=== PATIENT | female | born 1950 | race Caucasian/White ===

== ENCOUNTER 2024-10-12 12:07 | Outpatient (OUT) | payer MEDICARE, OTHER, SELFPAY ==
--- OUTSIDE RECORDS SUMMARY | 2024-09-25 08:48 | XMS_ITS ---
Author Organization [facility] in [place] Address [address] [place] [address] Care Team Providers Care State Superintendent Of Schools Name Role Phone Skyler Cameron DO Primary Care Provider Unavailab radha WernerPamelaBalwinder Unavailable [phone] REASON FOR VISIT HISTORY CARD CLERK-Referral Appointment Encounters Encounter Location Date Provider Diagnosis Pulmonary Medicine [facility] [address] [place] [address] 09/25/2024 Balwinder Nesbitt Plan Of Treatment Next Appt Details Provider Name:Balwinder Nesbitt, 10/24/2024 10:30:00 AM, [address] [place], [address], Progress Notes * Angela TONG ADOB:[birth year] (74 yo F)Acc No.[id number]:09/25/2024 Patient: Angela SCOTT :1950 A ge:74 Y S ex:Female Address:[address], [place] [address] * true * Date: Generated for Printi ng/Faxing/eTransmitting on: 0 10/12/2024 12:14 PM EDT
--- OUTSIDE RECORDS SUMMARY | 2024-09-27 13:05 | XMS_ITS | Encounter Summary ---
Author Organization [facility] Address [address] [place] [address] Phone Care Team Providers Care Harness And Bag Inspector Name Role Phone Skyler Cameron DO Primary Care Provider [phone] Alisha Murillo MD Unavailable Reason for Referral * Imaging (Routine) - Pending Review Specialty Diagnoses / Procedures Referred By Contac t Referred To Contact Cardiology Diagnoses Presence of automatic cardioverter/defibrillator (AICD) Ischemic cardiomyopathy Procedures Cardiac Device Check - Remote Alisha Murillo MD [address] [address] Phone: tel: fax: Referral ID Status Reason Start Date Expiration Date Visits Requested Visits Authorized [id number] Pending Review Perform Procedure 11/03/2023 11/02/2024 1 1 Reason for Visit * Imaging (Routine) - Pending Review Specialty Diagnoses / Procedures Referred By Contac t Referred To Contact Cardiology Diagnoses Presence of automatic cardioverter/defibrillator (AICD) Ischemic cardiomyopathy Procedures Cardiac Device Check - Remote Alisha Murillo MD [address] [facility], [address] [address] Phone: tel: fax: Referral ID Status Reason Start Date Expiration Date Visits Requested Visits Authorized [id number] Pending Review Perform Procedure 11/03/2023 11/02/2024 1 1 Encounter Details Date Type Department Care Team (Latest Contact Info) Description 09/27/2024 1:05 PM EDT - 09/27/2024 11:59 PM EDT Hospital Encounter [place] [address] [place] [address] Presence of automatic cardioverter/defibrill ator (AICD); Ischemic cardiomyopathy Discharge Disposition: Home Social History Tobacco Use Types Packs/Day Years Used Date Smoking Tobacco: Never Smokeless Tobacco: Never Alcohol Use Standard Drinks/Week Comments Not Currently 0 (1 standard drink = 0.6 oz pur e alcohol) Comments Unknown Sex and Gender Information Value Date Recorded Sex Assigned at Not on file Legal Sex Female 7:59 AM EST Gender Identity Not on file Sexual Orientation Not on file documented as of this encounter Medications at Time of Discharge aspirin 81 mg EC tablet Take 1 tablet (81 mg) by mouth once daily. atorvastatin (Lipitor) 20 mg tabletIndications: Dyslipidemia Take 1 tablet (20 mg) by mouth once daily at bedtime. 90 tablet 3 11/03/2023 carvedilol (Coreg) 6.25 mg tabletIndications: Ischemic cardiomyopathy,She aftab hypertension Take 1 tablet (6.25 mg) by mouth 2 times daily (morning and late afternoon). 180 tablet 3 06/28/2024 6 coenzyme Q-10 200 mg capsule Take 1 capsule (200 mg) by mouth once daily. hydroCHLOROthiazid e (HYDRODiuril) 25 mg tabletIndications: Primary hypertension Take 1 tablet (25 mg) by mouth once daily. 90 tablet 3 12/13/2023 5 nitroglycerin (Nitrostat) 0.4 mg SL tabletIndications: Atherosclerosis of [place] coronary artery of [place] heart without angina pectoris,Past myocardial infarction Place 1 tablet (0.4 mg) under the tongue every 5 minutes if needed for chest pain. 25 tablet 3 12/23/2023 valsartan (Diovan) 160 mg tabletIndications: Primary hypertension Take 1 tablet (160 mg) by mouth once daily. 90 tablet 3 03/27/2024 5 documented as of this encounter Plan of Treatment Upcoming Encounters Date Type Department Care Team (Late st Contact Info) Description 10/16/2024 9:10 AM EDT Office Visit [facility] [address] [place] [address] José Mon DO [address], [address] [place] [address] 10/26/2024 10:20 AM EDT Appointment [facility] [address] [place] [address] 10/26/2024 11:00 AM EDT Office Visit [facility] [address] [facility] [address] [place] [address] Alisha Murillo MD [address] [facility] [address], [address] [place] [address] documented as of this encounter Procedures Procedure Name Priority Date/Time Associated Diagnosis Comments CARDIAC DEVICE CHECK - REMOTE Routine 09/27/2024 1:35 PM EDT Presence of automatic cardioverter/defibrillato r (AICD) Ischemic cardiomyopathy documented in this encounter Results * CARDIAC DEVICE CHECK - NON BILL - ICD (09/27/2024 1:35 PM EDT) Anatomical Region Laterality Modality Monitor/Device 09/27/2024 4:42 AM EDT Alisha Murillo MD CV IMPLANTABLE CARDIAC DEVICE WA OCEDURES Final Result documented in this encounter Visit Diagnoses Diagnosis Presence of automatic cardioverter/defibrillator (AICD) Automatic implantable cardiac defibrillator in situ Ischemic cardiomyopathy Other specified forms of chronic ischemic heart disease documented in this encounter Additional Health Concerns Assessment Noted Time A fall risk assessment has been complete d for the patient 10/19/2023 10:08 AM EDT documented as of this encounter Care Teams Harness And Bag Inspector Relationship Specialty Start Date End Date Skyler Cameron DO [address] [place] [address] PCP - General 08/29/18 Alisha Murillo MD [address] [facility], [facility] [address] [place] [address] Track Helper Electrophysiology 04/21/23 documented as of this encounter
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
--- OUTSIDE RECORDS SUMMARY | 2024-10-12 12:14 | XMS_ITS | Encounter Summary ---
Author Organization [facility] Address [address] [place] [address] Phone Care Team Providers Care Contract Mail Carrier Name Role Phone Skyler Cameron DO Primary Care Provider [phone] Alisha Murillo MD Unavailable Encounter Details Date Type Department Care Team (Late st Contact Info) Description 08/14/2020 Orders Only [facility] [address] [place] [address] Conversion, Onbase Social History Tobacco Use Types Packs/Day Years Used Date Smoking Tobacco: Never Assessed Comments Unknown Sex and Gender Information Value Date Recorded Sex Assigned at Not on file Legal Sex Female 7:59 AM EST Gender Identity Not on file Sexual Orientation Not on file documented as of this encounter Plan of Treatment Upcoming Encounters Date Type Department Care Team (Late st Contact Info) Description 10/16/2024 9:10 AM EDT Office Visit [facility] [address] [place] [address] José Mon DO [address] [place] [address] 10/26/2024 10:20 AM EDT Appointment [facility] [address] [place] [address] 10/26/2024 11:00 AM EDT Office Visit [facility] [address] [address] Alisha Murillo MD [address] [facility], [facility] [address] [place], [place] [id number] Scheduled Orders Name Type Priority Associated Diagnoses Orde r Schedule OUTSIDE LAB SCAN Lab Ordered: 08/14/2020 documented as of this encounter Visit Diagnoses Not on filedocumented in this encounter Care Teams Contract Mail Carrier Relationship Specialty Start Date End Date Skyler Cameron DO [address] [place] [address] PCP - General 08/29/18 Alisha Murillo MD [address] [facility], [facility] [address] [place] [address] Telephone Clerks Supervisor Electrophysiology 04/21/23 documented as of this encounter
--- OUTSIDE RECORDS SUMMARY | 2024-10-12 12:14 | XMS_ITS | Clinical Summary ---
Author Organization [facility] Address [address] [place] [address] Care Team Providers Care Non Profit Job Titles Name Role Phone Skyler Cameron Primary Care Provider [phone] Allergies Active Allergy Reactions Criticality Noted Date Comments Adhesive Tape-Silicones 10/04/2018 Lisinopril Other 08/11/2007 Methylprednisolone Other Low 02/19/2008 Medications Medication Sig Dispensed Refills Start Date End Date Status aspirin 325 mg tablet Take by mouth. 08/11/2007 Active atorvastatin (Lipitor) 40 mg tablet Take 40 mg by mouth in the morning. Active carvedilol (Coreg) 12.5 mg tablet Take 12.5 mg by mouth in the morning and at bedtime. 09/28/2021 Active cephalexin (Keflex) 500 mg capsule TAKE 1 CAPSULE BY MOUTH TWICE DAILY FOR 10 DAYS 02/24/2022 Active clopidogrel (Plavix) 75 mg tablet Take by mouth. 06/13/2006 Active doxycycline (Vibra-Tabs) 100 mg tablet Take 100 mg by mouth in the morning and at bedtime. 11/24/2021 Active estradiol (Estrace) 0.01 % (0.1 mg/gram) vaginal cream Insert 1 g into the vagina every 7 (seven) days. 10/04/2018 Active FLUoxetine (PROzac) 20 mg capsule Take by mouth in the morning. 04/16/2022 Active hydroCHLOROthiazide (HYDRODiuril) 25 mg tablet TAKE 1/2 (ONE-HALF) OF A TABLET TWICE DAILY 04/29/2022 Active ibuprofen 400 mg tablet TAKE 1 TABLET BY MOUTH THREE TIMES DAILY FOR PAIN 11/24/2021 Active irbesartan (Avapro) 300 mg tablet Take 300 mg by mouth at bedtime. 03/31/2022 Active irbesartan-hydrochlorot hiazide (Avalide) 300-12.5 mg tablet Take 1 tablet by mouth in the morning. Active metoprolol tartrate (Lopressor) 25 mg tablet Take 25 mg by mouth in the morning. 08/11/2007 Active nitrofurantoin, macrocrystal-monohydrat e, (Macrobid) 100 mg capsule TAKE 1 CAPSULE BY MOUTH TWICE DAILY WITH FOOD FOR 7 DAYS 02/22/2022 Active nitroglycerin (Nitrostat) 0.4 mg SL tablet DISSOLVE 1 TABLET UNDER THE TONGUE NEEDED FOR CHEST PAIN- MAY REPEAT EVERY 5 MINUTES IF NEEDED ( MAX 3 DOSES.- IF NO RELIEF CALL 911) 04/26/2022 Active ondansetron ODT (Zofran-ODT) 4 mg disintegrating tablet DISSOLVE 1 (ONE) TABLET in mouth every EIGHT hours NEEDED FOR NAUSEA AND VOMITING 02/24/2022 Active predniSONE (Deltasone) 20 mg tablet TAKE 3 TABLETS BY MOUTH FOR 3 DAYS, then TAKE 2 TABLETS BY MOUTH FOR 3 DAYS then TAKE 1 TABLET BY MOUTH FOR 3 DAYS then TAKE ONE-HALF TABLET FOR 4 DAYS WITH FOOD 10/08/2021 Active rosuvastatin (Crestor) 10 mg tablet Take by mouth. 06/13/2006 Active Active Problems Problem Noted Date Diagnosed Date Cervical polyp 10/04/2018 Prolapsed uterus 10/04/2018 Brachial neuritis or radiculitis 02/19/2008 Trigger finger, acquired 06/13/2006 Immunizations Name Administration Dates Next Due Influenza, High Dose Seasona l, Preservative Free 05/09/2020 Influenza, High-dose Seasona l, Quadrivalent, Preservative Free 02/13/2020 Influenza, seasonal, injectable 05/03/2013 Pneumococcal Polysaccharide PPV23 05/09/2012 Unspecified Sars-Cov-2 Vaccination 04/09/2021,,07/05/2020 Social History Tobacco Use Types Packs/Day Years Used Date Smoking Tobacco: Never Assessed [place] Safety & Environment Answer Date Rec orded Fear of Current or Ex-Partner Not on file Emotionally Abused Not on file 06/30/2023 Physically Abused Not on file 06/30/2023 Sexually Abused Not on file 06/30/2023 Physically or Sexually Abused Not on file Sex and Gender Information Value Date Recorded Sex Assigned at Not on file Gender Identity Not on file Sexual Orientation Not on file Last Filed Vital Signs Vital Sign Reading Time Taken Comments Blood Pressure - - Pulse - - Temperature - - Respiratory Rate 16 07/27/2022 1:03 PM EDT Oxygen Saturation - - Inhaled Oxygen Concentration - - Weight 58.5 kg (129 lb) 07/27/2022 1:03 PM EDT Height 154.9 cm (5' 1 ) 07/27/2022 1:03 PM EDT Body Mass Index 24.37 07/27/2022 1:03 PM EDT Plan of Treatment Health Maintenance Due Date Last Done Comments CT Colonography 1950 Colonoscopy 1950 Colorectal Cancer Screening 1950 FIT-DNA 1950 FIT 1950 FOBT 1950 Medicare Annual Wellness (AWV) 1950 Sigmoidoscopy 1950 Depression Screening 1962 Adult Tetanus 1972 Mammogram 1990 Zoster Vaccines (1 of 2) 2000 Fall Risk Screening 07/15/2015 Pneumococcal Vaccine: 65+ Years (2 of 2 - PCV) 07/15/2015 05/09/2012 COVID-19 Vaccine (2023-2 5 season) 2024 04/09/2021, 08/02/2020, 07/05/2020 Influenza Vaccine (Season Ended) 2025 05/09/2020, 02/13/2020, 05/03/2013 HIB Vaccines Aged Out No longer eligi ble based on patient's age to complete this topic HPV Vaccines Aged Out No longer eligi ble based on patient's age to complete this topic IPV Vaccines Aged Out No longer eligi ble based on patient's age to complete this topic Meningococcal B Vaccine Aged Out No l onger eligible based on patient's age to complete this topic Meningococcal Vaccine Aged Out No raman maranda eligible based on patient's age to complete this topic Rotavirus Vaccines Aged Out No longer eligible based on patient's age to complete this topic Care Teams Non Profit Job Titles Relationship Specialty Start Date End Date Skyler Cameron DO [address] [place] [address] PCP - General 05/11/22
--- OUTSIDE RECORDS SUMMARY | 2024-10-12 12:14 | XMS_ITS | Clinical Summary ---
Author Organization [facility] Address [address] [place] [address] Phone Care Team Providers Care Wedding Planner Name Role Phone Skyler Cameron DO Primary Care Provider [phone] Alisha Murillo MD Unavailable Allergies Active Allergy Reactions Criticality Noted Date Comments Peter Inhibitors Headache,Unknown,Other 8 Adhesive Tape-Silicones Unknown 10/04/2018 Methylprednisolone Unknown,Other Low 02/19/2008 Nitrofurantoin Nausea/vomiting,Nausea Only 02/06 Medications aspirin 81 mg EC tablet Take 1 tablet (81 mg) by mouth once daily. Active coenzyme Q-10 200 mg capsule Take 1 capsule (200 mg) by mouth once daily. Active atorvastatin (Lipitor) 20 mg tabletIndications :Dyslipidemia Take 1 tablet (20 mg) by mouth once daily at bedtime. 90 tablet 3 4 Active hydroCHLOROthiazi de (HYDRODiuril) 25 mg tabletIndications :Primary hypertension Take 1 tablet (25 mg) by mouth once daily. 90 tablet 3 4 12/13/19 25 Active nitroglycerin (Nitrostat) 0.4 mg SL tabletIndications :Atherosclerosis of [place] de[place]-ni' coronary artery of [place] de[place]' heart without angina pectoris,Past myocardial infarction Place 1 tablet (0.4 mg) under the tongue every 5 minutes if needed for chest pain. 25 tablet 3 4 Active valsartan (Diovan) 160 mg tabletIndications :Primary hypertension Take 1 tablet (160 mg) by mouth once daily. 90 tablet 3 4 03/27/20 25 Active carvedilol (Coreg) 6.25 mg tabletIndications :Ischemic cardiomyopathy,Pr imary hypertension Take 1 tablet (6.25 mg) by mouth 2 times daily (morning and late afternoon). 180 tablet 3 5 06/28/19 26 Active Active Problems Problem Noted Date Diagnosed Date Body mass index (BMI) of 24.0 to 24.9 in adult 1 06/21/2023 Encounter to discuss test results 04/20/2024 Venous insufficiency 04/20/2024 Orthostatic dizziness 04/20/2024 Chronotropic incompetence with sinus node dysfun ction 04/22/2023 Never smoked cigarettes 04/22/2023 Encounter for medication review and counseling 1 06/23/2022 Encounter to discuss treatment options Atherosclerosis of [place]' co ronary artery of [place] de[place]-ni' heart without angina pectoris 04/21/2023 Cardiac arrest 04/21/2023 Dizziness 04/21/2023 Dyslipidemia 04/21/2023 History of PTCA 04/21/2023 Primary hypertension 04/21/2023 ICD (implantable cardioverter-defibrillator), dre liu, in situ 04/21/2023 Ischemic cardiomyopathy 04/21/2023 Mechanical complication of i mplantable cardioverter-defibrillator (ICD) 04/21/2023 Past myocardial infarction 04/21/2023 Ventricular tachycardia (paroxysmal) 04/21/2023 Cervical polyp 10/04/2018 Prolapsed uterus 10/04/2018 Brachial neuritis or radiculitis 02/19/2008 Trigger finger, acquired 06/13/2006 Resolved Problems Problem Noted Date Diagnosed Date Resolved Date BMI 25.0-25.9,adult 04/22/2023 04/20/20 24 Encounters Date Type Department Care Team Description 09/27/2024 1:05 PM EDT - 09/27/2024 11:59 PM EDT Hospital Encounter [address] [address] Presence of automatic cardioverter/defibrilla tor (AICD); Ischemic cardiomyopathy Discharge Disposition: Home 08/28/2024 10:35 AM EDT - 08/28/2024 11:59 PM EDT Hospital Encounter [facility] [address] [facility] [place] [address] Presence of automatic cardioverter/defibrilla tor (AICD); Ischemic cardiomyopathy Discharge Disposition: Home 07/26/2024 1:18 PM EDT - 07/26/2024 11:59 PM EDT Hospital Encounter [facility] [address] [facility] [place] [address] Presence of automatic cardioverter/defibrilla tor (AICD); Ischemic cardiomyopathy Discharge Disposition: Home from Last 3 Months Family History Medical History Relation Name Comments Diabetes type II Brother Lung cancer Father cva Father Atrial fibrillation Mother Bone cancer Mother Coronary artery disease Mother Heart attack Mother ptca Mother cardiac disorder Sister Relation Name Status Comments Brother Father Mother Sister Social History Tobacco Use Types Packs/Day Years Used Date Smoking Tobacco: Never Smokeless Tobacco: Never Tobacco Cessation:Counseling Given: Not Answered Alcohol Use Standard Drinks/Week Comments Not Currently 0 (1 standard drink = 0.6 oz pur e alcohol) Comments Unknown Sex and Gender Information Value Date Recorded Sex Assigned at Not on file Legal Sex Female 7:59 AM EST Gender Identity Not on file Sexual Orientation Not on file Last Filed Vital Signs Vital Sign Reading Time Taken Comments Blood Pressure 140/68 04/20/2024 11:12 AM EST 144/68 recheck sitting, right arm Pulse 57 04/20/2024 11:12 AM EST Temperature - - Respiratory Rate - - Oxygen Saturation - - Inhaled Oxygen Concentration - - Weight 59.4 kg (131 lb) 04/20/2024 11:1 2 AM EST Height 154.9 cm (5' 1 ) 04/20/2024 11:1 2 AM EST Body Mass Index 24.75 04/20/2024 11:12 AM EST Plan of Treatment Upcoming Encounters Date Type Department Care Team (Late st Contact Info) Description 10/16/2024 9:10 AM EDT Office Visit [facility] [address] [facility] [address] [place] [phone] José Mon DO [address] [facility] [address] [place], [place] [id number] 10/26/2024 10:20 AM EDT Appointment [facility] [address] [place] [address] 10/26/2024 11:00 AM EDT Office Visit [facility] [address] [place] [phone] Alisha Murillo MD [address] [facility] [address], [address] [place], [place] [id number] Health Maintenance Due Date Last Done Comments Bone Density Scan 1950 CT Colonography 1950 Colonoscopy 1950 Colorectal Cancer Screening 1950 FIT-DNA (Cologuard) 1950 FIT 1950 Medicare Annual Wellness Visit (AWV) 1950 Sigmoidoscopy 1950 Hepatitis C Screening 1968 DTaP/Tdap/Td Vaccines (1 - Tdap) 1972 Mammogram 1990 RSV High Risk: (Elderly (60+) or Population) (1 - Risk 60-74 years 1-dose series) 2010 Pneumococcal Vaccine (2 of 2 - PCV) 05/09/2013 05/09/2012 Zoster Vaccines (2 of 3) 07/04/2013 05/09/2013 Diabetes Screening 08/30/2019 08/29/2018 Lipid Panel 08/30/2023 08/29/2018 COVID-19 Vaccine ( season) 2024 04/09/2021, 08/02/2020, 07/05/2020 Influenza Vaccine (Season Ended) 2025 05/09/2020, 02/13/2020, 04/08/2014, Additional history exists HIB Vaccines Aged Out No longer eligi ble based on patient's age to complete this topic HPV Vaccines Aged Out No longer eligi ble based on patient's age to complete this topic Hepatitis A Vaccines Aged Out No long er eligible based on patient's age to complete this topic Hepatitis B Vaccines Aged Out No long er eligible based on patient's age to complete this topic IPV Vaccines Aged Out No longer eligi ble based on patient's age to complete this topic Meningococcal Vaccine Aged Out No raman maranda eligible based on patient's age to complete this topic Rotavirus Vaccines Aged Out No longer eligible based on patient's age to complete this topic Procedures Procedure Name Priority Date/Time Associated Diagnosis Comments CARDIAC DEVICE CHECK - REMOTE Routine 09/27/2024 1:35 PM EDT Presence of automatic cardioverter/defibrill ator (AICD) Ischemic cardiomyopathy CARDIAC DEVICE CHECK - REMOTE Routine 08/28/2024 1:40 PM EDT Presence of automatic cardioverter/defibrill ator (AICD) Ischemic cardiomyopathy CARDIAC DEVICE CHECK - REMOTE - ICD Routine 07/26/2024 1:25 PM EDT Presence of automatic cardioverter/defibrill ator (AICD) Ischemic cardiomyopathy HEMOGLOBIN A1C Routine 08/29/2018 8:43 AM EDT LIPID PANEL Routine 08/29/2018 8:43 AM EDT from Last 3 Months or Most Recently Relevant to Health Maintenance Results * CARDIAC DEVICE CHECK - NON BILL - ICD (09/27/2024 1:35 PM EDT) Only the most recent of3 resultswithin the time period is included. Anatomical Region Laterality Modality Monitor/Device 09/27/2024 4:42 AM EDT us Alisha Murillo MD CV IMPLANTABLE CARDIAC DEVICE NV OCEDURES Final Result * Hemoglobin A1C (08/29/2018 8:43 AM EDT) Hemoglobin A1C 5.9 % [facility] Comment: Diagnosis of Diabetes-Adults Non-Diabetic: < or = 5.6% Increased risk for developing diabetes: 5.7-6.4% Diagnostic of diabetes: > or = 6.5% . Monitoring of Diabetes Age (y) Therapeutic Goal (%) Adults: >18 <7.0 Pediatrics: 13-18 <7.5 7-12 <8.0 0- 6 7.5-8.5 [place] [employer]. Diabetes Care 33(S1), May 2009. Estimated Average Glucose 123 MG/DL [facility] 08/29/2018 8:43 AM EDT 08/29/2018 9:48 PM EDT us Skyler Jeanette Cameron DO LAB BLOOD ORDERABLES Final Res ult [facility] * Lipid Panel (08/29/2018 8:43 AM EDT) Cholesterol 139 0 - 199 mg/dL [facility] Comment: . AGE DESIRABLE BORDERLINE HIGH HIGH 0-19 Y 0 - 169 170 - 199 >/= 200 20-24 Y 0 - 189 190 - 224 >/= 225 >24 Y 0 - 199 200 - 239 >/= 240 All ranges are based on fasting samples. Specific therapeutic targets will vary based on patient-specific cardiac risk. . Pediatric guidelines reference:Pediatrics 2011, 128(S5). Adult guidelines reference: NCEP ATPIII Guidelines, VANI 2001, 258:4456-97 . Venipuncture immediately after or during the administration of Metamizole may lead to falsely low results. Testing should be performed immediately prior to Metamizole dosing. HDL 43.0 mg/dL [facility] Comment: . AGE VERY LOW LOW NORMAL HIGH 0-19 Y < 35 < 40 40-45 ---- 20-24 Y ---- < 40 >45 ---- >24 Y ---- < 40 40-60 >60 . Cholesterol/HDL Ratio 3.2 [facility] Comment: REF VALUES DESIRABLE < 3.4 HIGH RISK > 5.0 LDL 70 0 - 99 mg/dL [facility] Comment: . NEAR BORD AGE DESIRABLE OPTIMAL HIGH HIGH VERY HIGH 0-19 Y 0 - 109 --- 110-129 >/= 130 ---- 20-24 Y 0 - 119 --- 120-159 >/= 160 ---- >24 Y 0 - 99 100-129 130-159 160-189 >/=190 . VLDL 26 0 - 40 mg/dL [facility] Triglycerides 128 0 - 149 mg/dL [facility] Comment: . AGE DESIRABLE BORDERLINE HIGH HIGH VERY HIGH 0 D-90 D 19 - 174 ---- ---- ---- 91 D- 9 Y 0 - 74 75 - 99 >/= 100 ---- 10-19 Y 0 - 89 90 - 129 >/= 130 ---- 20-24 Y 0 - 114 115 - 149 >/= 150 ---- >24 Y 0 - 149 150 - 199 200- 499 >/= 500 . Venipuncture immediately after or during the administration of Metamizole may lead to falsely low results. Testing should be performed immediately prior to Metamizole dosing. 08/29/2018 8:43 AM EDT 08/29/2018 6:59 PM EDT Skyler Cameron DO LAB BLOOD ORDERABLES Final Res ult [facility] from Last 3 Months or Most Recently Relevant to Health Maintenance Insurance GENERIC COMMERCIAL MEDICARE PART A AND B GENERIC COMMERCIAL MEDICARE PART A AND B Care Teams Wedding Planner Relationship Specialty Start Date End Date Skyler Cameron DO [address] [place] [address] PCP - General 08/29/18 Alisha Murillo MD [address] [facility] [address] [place] [address] Manufacturers Agent Electrophysiology 04/21/23
--- OUTSIDE RECORDS SUMMARY | 2024-10-12 12:14 | XMS_ITS | Referral Summary ---
Author Organization [facility] Address [address] [place] [address] Care Team Providers Care Wash Box Operator Name Role Phone Skyler Cameron Primary Care Provider Allergies Active Allergy Reactions Criticality Noted Date [...] 07/27/2022 1:03 PM EDT Plan of Treatment Not on file Care Teams Wash Box Operator Relationship Specialty Start Date End Date Skyler Cameron DO [address] [place] [phone] PCP - General 05/11/22
--- OUTSIDE RECORDS SUMMARY | 2024-10-12 12:15 | XMS_ITS | Clinical Summary ---
Author Organization [facility] Address [id number] [address] [place] [address] Care Team Providers Care Welder Shielded Metal Arc Name Role Phone Skyler Cameron DO Primary Care Provider [phone] Allergies Active Allergy Reactions Criticality Noted Date Comments Adhesive Tape-Silicones 10/04/2018 Lisinopril 10/04/2018 Medications metoprolol tartrate (LOPRESSOR) 25 mg tablet Take 25 mg by mouth daily. Active irbesartan-hydr oCHLOROthiazide (AVALIDE) 300-12.5 mg per tablet Take 1 tablet by mouth daily. Active atorvastatin (LIPITOR) 40 mg tablet Take 40 mg by mouth daily. Active aspirin 81 mg Take 81 mg by mouth daily. Active estradiol (ESTRACE) 0.01 % (0.1 mg/gram) vaginal creamIndication s:Prolapsed uterus,Cervical polyp Insert 1 g into the vagina once a week. 42.5 g 5 9 Active Additional Information Patient not taking.Reported on 04/08/2021 nitroglycerin (NITROSTAT) 0.4 MG SL tablet DISSOLVE ONE TABLET UNDER THE TONGUE EVERY 5 MINUTES NEEDED FOR CHEST PAIN. DO NOT EXCEED A TOTAL OF 3 DOSES IN 15 MINUTES NOW 9 Active Active Problems Problem Noted Date Diagnosed Date Prolapsed uterus 10/04/2018 Cervical polyp 10/04/2018 Family History Medical History Relation Name Comments Hypertension Brother Stroke Father Brain cancer Maternal Grandfather Hypertension Mother Lung cancer Mother Lymphoma Mother Breast cancer Paternal Aunt Uterine cancer Paternal Aunt Lung cancer Paternal Grandfather Hypertension Paternal Grandmother Hypertension Sister Relation Name Status Comments Brother Father Maternal Grandfather Mother Paternal Aunt Paternal Grandfather Paternal Grandmother Sister Social History Tobacco Use Types Packs/Day Years Used Date Smoking Tobacco: Never Smokeless Tobacco: Never Alcohol Use Standard Drinks/Week Comments Yes 0 (1 standard drink = 0.6 oz pur e alcohol) Occ. Childcare Answer Date Recorded Childcare Unknown 10/07/2018 Employment Answer Date Recorded Employment Unknown 10/07/2018 Purpose - Life Answer Date Recorded Purpose and direction in life Unknown Comments Unknown Sex and Gender Information Value Date Recorded Sex Assigned at Not on file Legal Sex Female 11:05 PM EDT Gender Identity Not on file Sexual Orientation Not on file Last Filed Vital Signs Vital Sign Reading Time Taken Comments Blood Pressure 138/78 04/08/2021 10:33 AM EST Pulse - - Temperature - - Respiratory Rate - - Oxygen Saturation - - Inhaled Oxygen Concentration - - Weight 63.5 kg (140 lb) 04/08/2021 10:33 AM EST Height 156 cm (5' 1.42 ) 04/08/2021 10:33 AM EST Body Mass Index 26.09 04/08/2021 10:33 AM EST Plan of Treatment Health Maintenance Due Date Last Done Comments Depression Screening 1962 Tobacco Screening 1962 Adult BMI Screening 1968 DTaP,Tdap and Td Vaccines (1 - Tdap) 1969 Zoster (Shingles) Vaccine (1 of 2) 2000 Fall Risk Screening 07/15/2015 COVID-19 Vaccine (3 - 2023-2 5 season) 2024 08/02/2020, 07/05/2020 Influenza Vaccine 01/07/2025 05/09/2020, , 05/03/2013 Medical Devices Not on file Insurance MEDICARE COMMERCIAL Care Teams Welder Shielded Metal Arc Relationship Specialty Start Date End Date Skyler Cameron DO [address] [place] [address] [address] [place] [address] PCP - General Family Medicine 10/04/18
--- OUTSIDE RECORDS SUMMARY | 2024-10-12 12:15 | XMS_ITS | Patient Health Record ---
Author Organization [facility] [place] Address [address] [place] [address] Care Team Providers Care Clinical Psychologist Name Role Phone Skyler Cameron DO Primary Care Provider Ariel garcia DeliciaBalwinder Unavailable [phone] Allergies Allergen (clinical drug ingredient) Drug/Non Drug Allergy documented on EMR Reaction Allergy Type Onset Date Status nitrofurantoin, macrocrystals / nitrofurantoin, monohydrate Macrobid vomiting Drug Allergy Active lisinopril Lisinopril headache Drug Allergy Activ e Tegaderm rash Allergy Active Reason For Referral No Information Medications Medication SIG (Take, Route, Frequency, Duration) Notes Start Date End Date Status Atorvastatin Calcium 20 MG Take 1 tablet (20 mg) by mouth once daily at bedtime. Oral for 90 Days Active Aspirin 81 81 MG 1 tablet Orally Once a day for 30 day(s) 10/08/2024 Active Coenzyme Q10 200 MG as directed Orally Active Carvedilol 6.25 MG Oral for 90 Days Active Nitroglycerin 0.4 MG DISSOLVE 1 TABLET [...] 30 days Dispense #1 inhaler 10/08/2024 Active Multi Complete - as directed Orally Active Immunizations Vaccine Route Administration Date Status Comme nts Flu, Fluad (78252) 65 yrs + High Dose Seasonal (3428-6868) Unknown 05/09/2020 Administered Pneumococcal (Pneumovax 23) Unknown 05/09/2012 Administ nae SARS-COV-2 (COVID 19 Moderna - Booster 0.25mL) Unknown 04/09/2021 Administered Social History Tobacco Use: Social History Observation Description Date Details (start date - stop date) Never Smoker NA - NA Tobacco Control (Standard) Question Answer Notes Tobacco use: Nonsmoker Problems Problem Type SNOMED Code ICD Code Onset Dates Problem Status W/U Status Risk Notes Problem JESSICA (iron deficiency anemia) (D50.9) Active confirmed Problem History of COVID-19 ([id number]) History of COVID-19 (Z86.16) Active confirmed Vital Signs Heart Rate 60 /min 10/08/2024 Temperature 96.6 degrees Fahrenheit 10/08/2024 Respiratory Rate 16 /min 10/08/2024 Oximetry 95 % 10/08/2024 Blood pressure diastolic 77 mm Hg 10/08/2024 Height 61 in 10/08/2024 Blood pressure systolic 161 mm Hg 10/08/2024 Weight 135.4 lbs 10/08/2024 BMI 25.58 kg/m2 10/08/2024 Procedures Procedure Date Ordered Date Performed Result Body Sit e PFT (72602, 91696, 48304) 10/08/2024 N/A Encounters Encounter Location Date Provider Diagnosis Pulmonary Medicine [place] [address] [place] [address] 09/25/2024 [facility] Pul[facility] Medicine [place] [address] [place] [address] 10/08/2024 [facility] Chronic cough R05.3 ; JESSICA (iron deficiency [...] factor? Had COVID-19 twice. Plan Of Treatment Pending Test Test Name Order Date IGE, IMMUNOGLOBULIN (TOTAL) 10/08/2024 CBC W/AUTO DIFF 10/08/2024 PFT (01264, 35177, 59465) 10/08/2024 Next Appt Details Provider Name:Balwinder Nesbitt, 10/24/2024 10:30:00 AM, [address] [place], [address], Insurance Providers Payer Name Payer Address Payer Phone Subscriber Number Group Number Insured Name Patient Relationship to Insured Coverage Start Date Coverage End Date [place] [address] [place] [address] [id number] Angela Juarez Self - patient is the insured 7 [employer] [address] [place], [place] [id number] Angela Juarez Self - patient is the insured Medical (General) History Medical History History ICD Code HTN (hypertension) I10 SSS (sick sinus syndrome) I49.5 HLD (hyperlipidemia) E78.5 JESSICA (iron deficiency anemia) D50.9 CAD (coronary artery disease) I25.10 Ischemic cardiomyopathy I25.5 History of uterine prolapse Z87.42 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
--- OUTSIDE RECORDS SUMMARY | 2024-10-12 12:15 | XMS_ITS | Encounter Summary ---
Author Organization [facility] Address [address] [place] [address] Phone Care Team Providers Care Dredge Pipeman Name Role Phone Skyler [place] DO Primary Care Provider [phone] Alisha Murillo MD Unavailable Encounter Details Date Type Department Care Team (Late st Contact Info) Description 09/08/2021 Orders Only [facility] [address] [place] [address] Conversion, Onbase Social History Tobacco Use Types [...] Description 10/16/2024 9:10 AM EDT Office Visit [facility] [address] [place] [address] José Mon DO [address], [address] [place] [address] 10/26/2024 10:20 AM EDT Appointment [facility] [address] [place] [address] 10/26/2024 11:00 AM EDT Office Visit [facility] [address] [place] [address] Alisha Murillo MD [address] [facility], [facility] [address] [place], [place] [phone] Scheduled Orders Name Type Priority Associated Diagnoses Orde r Schedule OUTSIDE LAB SCAN Lab Ordered: 09/08/2021 OUTSIDE LAB SCAN Lab Ordered: 09/08/2021 documented as of this encounter Visit Diagnoses Not on filedocumented in this encounter Care Teams Dredge Pipeman Relationship Specialty Start Date End Date Skyler [place] DO [address] [place] [address] PCP - General 08/29/18 Alisha Murillo MD [address] [facility], [facility] [address] [place] [address] Employee Relations Specialist Electrophysiology 04/21/23 documented as of this encounter
--- OUTSIDE RECORDS SUMMARY | 2024-10-12 12:15 | XMS_ITS | Encounter Summary ---
Author Organization [facility] Address [address] [place] [address] Phone Care Team Providers Care Industrial Sales Engineer Name Role Phone Skyler [place] DO Primary Care Provider Alisha Murillo MD Unavailable Encounter Details Date Type Department Care Team (Late st Contact Info) Description 03/05/2019 Orders Only [facility] LE[facility]Y [address] [place] [address] Conversion, Onbase Social History Tobacco Use Types [...] Description 10/16/2024 9:10 AM EDT Office Visit [facility] [address] [place] [address] José Mon DO [address], [address] [place] [address] 10/26/2024 10:20 AM EDT Appointment [facility] [address] [place] [address] 10/26/2024 11:00 AM EDT Office Visit [facility] [address] [address] Alisha Murillo MD [address] [facility], [facility] [address] [place], [place] [phone] Scheduled Orders Name Type Priority Associated Diagnoses Orde r Schedule OUTSIDE LAB SCAN Lab Ordered: 03/05/2019 documented as of this encounter Visit Diagnoses Not on filedocumented in this encounter Care Teams Industrial Sales Engineer Relationship Specialty Start Date End Date Skyler Cameron DO [address] [place] [address] PCP - General 08/29/18 Alisha Murillo MD [address] [facility], [address] [phone] Manager Learning Electrophysiology 04/21/23 documented as of this encounter
--- OUTSIDE RECORDS SUMMARY | 2024-10-12 12:15 | XMS_ITS | Encounter Summary ---
Author Organization [employer] Address [id number] [address] [place] [address] Care Team Providers Care Shingle Carrier Name Role Phone Skyler Cameron DO Primary Care Provider Encounter Details Date Type Department Care Team (Late st Contact Info) Description 02/22/2020 Orders Only [facility] [address] [place] [address] David Wong RMA Prolapsed uterus; Cervical polyp Social History Tobacco Use Types Packs/Day Years Used Date Smoking Tobacco: Never Smokeless Tobacco: Never Alcohol Use Standard Drinks/Week Comments Yes 0 (1 standard drink = 0.6 oz pur e alcohol) Occ. Childcare Answer Date Recorded Childcare Unknown 10/07/2018 Employment Answer Date Recorded Employment Unknown 10/07/2018 Comments Unknown Sex and Gender Information Value Date Recorded Sex Assigned at Not on file Legal Sex Female 11:05 PM EDT Gender Identity Not on file Sexual Orientation Not on file documented as of this encounter Plan of Treatment Not on file documented as of this encounter Procedures Procedure Name Priority Date/Time Associated Diagnosis Comments US PELVIC WITH TRANSVAGINAL Routine 02/01/2020 Prolapsed uterus Cervical polyp documented in this encounter Results * Ultrasound pelvic with transvaginal (02/01/2020) Anatomical Region Laterality Modality Body, Pelvis Ultrasound 02/01/2020 us Santiago Arnold MD IMG US ORDERABLES Final Result documented in this encounter Visit Diagnoses Diagnosis Prolapsed uterus Uterine prolapse without mention of vaginal wall prolapse Cervical polyp Mucous polyp of cervix documented in this encounter Additional Health Concerns Assessment Noted Time A Body Mass Index follow-up plan has been documented for the patient 04/18/2019 12:12 PM EST documented as of this encounter Care Teams Shingle Carrier Relationship Specialty Start Date End Date Skyler [place] DO [address] [place] [address] [place] [address] PCP - General Family Medicine 10/04/18 documented as of this encounter
--- OUTSIDE RECORDS SUMMARY | 2024-10-12 12:15 | XMS_ITS | Encounter Summary ---
Author Organization [employer] Address [id number] [address] [place] [address] Care Team Providers Care Student Financial Aid Manager Name Role Phone Skyler [place] DO Primary Care Provider [phone] Encounter Details Date Type Department Care Team (Late st Contact Info) Description 04/09/2021 Orders Only [facility] [address] [place] [address] David Wong RMA Prolapsed uterus; Cervical polyp [...] on file Sexual Orientation Not on file COVID-19 Exposure Response Date Recorded In the last month, have you been in contact with someone who was confirmed or suspected to have Coronavirus / COVID-19? No / Unsure 04/08/2021 10:28 AM EST documented as of this encounter Plan of Treatment Not on file documented as of this encounter Procedures Procedure Name Priority Date/Time Associated Diagnosis Comments US PELVIC WITH TRANSVAGINAL Routine 04/01/2021 Prolapsed uterus Cervical polyp documented in this encounter Results * Ultrasound pelvic with transvaginal (04/01/2021) Anatomical Region Laterality Modality Body, Pelvis Ultrasound 04/01/2021 us Radha Bustos LENDING CONSULTANT-FRUIT VENDOR IMG US ORDERABLES Ritu viera Result documented in this encounter Visit Diagnoses Diagnosis Prolapsed uterus Uterine prolapse without mention of vaginal wall prolapse Cervical polyp Mucous polyp of cervix documented in this encounter Additional Health Concerns Assessment Noted Time A Body Mass Index follow-up plan has been documented for the patient 04/18/2019 12:12 PM EST documented as of this encounter Care Teams Student Financial Aid Manager Relationship Specialty Start Date End Date Skyler [place] DO [address] [place] [address] [place] [address] PCP - General Family Medicine 10/04/18 documented as of this encounter
--- OUTSIDE RECORDS SUMMARY | 2024-10-12 12:15 | XMS_ITS | Clinical Summary ---
Author Organization [facility] Address [address] [place] [address] Care Team Providers Care Consumer Insights Specialist Name Role Phone Skyler [place] DO Primary Care Provider [phone] Allergies Active Allergy Reactions Criticality Noted Date Comments Lisinopril Intolerance 08/11/2007 Methylprednisolone Intolerance Low 02/19/2008 Medications PLAVIX 75 MG TAB Take one(1) tablet daily. 0 06/13/2006 Active CRESTOR 10 MG TAB 0 06/13/2006 Active METOPROLOL 25 MG TAB 0 08/11/2007 Active ASPIRIN 325 MG TAB Take one (1) tablet daily . 0 08/11/2007 Active Active Problems Problem Noted Date Diagnosed Date Brachial neuritis or radiculitis NOS 02/19/2008 Trigger finger (acquired) 06/13/2006 Social History Tobacco Use Types Packs/Day Years Used Date Smoking Tobacco: Never Assessed Comments No Sex and Gender Information Value Date Recorded Sex Assigned at Not on file Legal Sex Female 8:06 AM EST Gender Identity Not on file Sexual Orientation Not on file Last Filed Vital Signs Vital Sign Reading Time Taken Comments Blood Pressure - - Pulse - - Temperature - - Respiratory Rate - - Oxygen Saturation - - Inhaled Oxygen Concentration - - Weight 60.8 kg (134 lb) 02/19/2008 1:44 PM EDT Height 160 cm (5' 3 ) 02/19/2008 1:44 PM EDT Body Mass Index 23.74 02/19/2008 1:44 PM EDT Plan of Treatment Health Maintenance Due Date Last Done Comments Anxiety Screening 1968 Depression Screening 1968 Hepatitis C Screening 1968 DTaP,Tdap,Td Vaccine (1 - Tdap) [address] Colonography 07/15/1995 Cologuard (FIT-DNA) 07/15/1995 Colonoscopy 07/15/1995 Colorectal Cancer Screening 07/15/1995 Diabetes Screening 07/15/1995 Fecal Occult Blood 07/15/1995 Lipid Screening 07/15/1995 Sigmoidoscopy 07/15/1995 Pneumococcal Vaccine: 50+ (1 of 1 - PCV) 2000 Shingrix Vaccine (1 of 2) 2000 Bone Density Screening 07/15/2015 Covid-19 Vaccine ( - 2023- season) 2024 Advance Directive Discussion 05/09/2024 Influenza Vaccine (Season Ended) 2025 RSV Vaccine (1 - 1-dose 75+ series) 2025 Insurance [facility] Care Teams Consumer Insights Specialist Relationship Specialty Start Date End Date Skyler Cameron DO PCP - General 05/23/06
--- OUTSIDE RECORDS SUMMARY | 2024-10-12 12:15 | XMS_ITS | Encounter Summary ---
Author Organization [facility] Address [address] [place] [address] Phone Care Team Providers Care Information Technology Advisor Name Role Phone Skyler Cameron DO Primary Care Provider [phone] Alisha Murillo MD Unavailable Encounter Details Date Type Department Care Team (Late st Contact Info) Description 03/12/2024 Scanned Document [facility] [address] [place] [phone] Scanning, Generic Provider Social History Tobacco Use Types Packs/Day Years [...] Office Visit [facility] [address] [facility] [address] [place] [address] José Mon DO [address] [facility] 2, [address] [place] [address] 10/26/2024 10:[address] [facility] [address] [place] [address] 10/26/2024 11:00 AM EDT Office Visit [facility] [address] [place] [address] Alisha Murillo MD [address] [facility], [facility] [address] [place], [place] [phone] documented as of this encounter Visit Diagnoses Not on filedocumented in this encounter Additional Health Concerns Assessment Noted Time A fall risk assessment has been complete d for the patient 10/19/2023 10:08 AM EDT documented as of this encounter Care Teams Information Technology Advisor Relationship Specialty Start Date End Date Skyler [place] DO [address] [place] [address] PCP - General 08/29/18 Alisha Murillo MD [address] [facility], [facility] [address] [place] [address] Progress Clerk Electrophysiology 04/21/23 documented as of this encounter
--- OUTSIDE RECORDS SUMMARY | 2024-10-12 12:15 | XMS_ITS | Clinical Summary ---
Author Organization [facility] Address [address] [place] [address] Care Team Providers Care Scrubber Machine Tender Name Role Phone Unavailable Primary Care Provider Unavailabl e Active Problems Problem Noted Date Diagnosed Date Neck pain, chronic 05/16/2024 Social History Tobacco Use Types Packs/Day Years Used Date Smoking Tobacco: Never Assessed Comments Unknown Sex and Gender Information Value Date Recorded Sex Assigned at Not on file Legal Sex Female 6:34 PM EDT Gender Identity Not on file Sexual Orientation Not on file Plan of Treatment Health Maintenance Due Date Last Done Comments CT Colonography 1950 Colonoscopy 1950 Colorectal Cancer Screening 1950 FIT-DNA 1950 FIT 1950 FOBT 1950 Sigmoidoscopy 1950 Mammogram 1990 Pneumococcal Vaccine: 65+ Ye ars (2 of 2 - PCV) 05/09/2013 05/09/2012 Influenza Vaccine (Season Ended) 2025 05/09/2020, 02/13/2020, 05/03/2013 Insurance [place]IC[place] [employer]
--- OUTSIDE RECORDS SUMMARY | 2024-10-12 12:15 | XMS_ITS | Encounter Summary ---
Author Organization [employer] Address [id number] [address] [place] [address] Care Team Providers Care Supervisor Salvage Name Role Phone Skyler Cameron DO Primary Care Provider [phone] Encounter Details Date Type Department Care Team (Late st Contact Info) Description 03/25/2020 Orders Only [facility] [address] [place] [address] Ref Prov, [place] [address] Social History Tobacco Use Types Packs/Day Years [...] have Coronavirus / COVID-19? No / Unsure 03/24/2020 2:17 PM EST documented as of this encounter Plan of Treatment Not on file documented as of this encounter Procedures Procedure Name Priority Date/Time Associated Diagnosis Comments MAMM SCREENING BILATERAL W CAD Routine 03/21/2020 documented in this encounter Results * Mammography screening bilateral with CAD (03/21/2020) Anatomical Region Laterality Modality Breast Bilateral Mammography 03/21/2020 us Not In System Ref Prov IMG MAMMOGRAPHY ORDERABLE S Final Result documented in this encounter Visit Diagnoses Not on filedocumented in this encounter Additional Health Concerns Assessment Noted Time A Body Mass Index follow-up plan has been documented for the patient 04/18/2019 12:12 PM EST documented as of this encounter Care Teams Supervisor Salvage Relationship Specialty Start Date End Date Skyler [place] DO [address] [place] [address] [address] PCP - General Family Medicine 10/04/18 documented as of this encounter
--- OUTSIDE RECORDS SUMMARY | 2024-10-12 12:15 | XMS_ITS | Encounter Summary ---
Author Organization [facility] Address [address] [place] [address] Phone Care Team Providers Care Calendering Machine Operator Name Role Phone Skyler [place] DO Primary Care Provider [phone] Alisha Murillo MD Unavailable Encounter Details Date Type Department Care Team (Late st Contact Info) Description 09/16/2022 Orders Only [facility] LE[facility]Y [address] [place] [address] Conversion, Onbase Social History Tobacco Use Types [...] Description 10/16/2024 9:10 AM EDT Office Visit [facility] [address] [place] [address] José Mon DO [address], [address] [place] [address] 10/26/2024 10:20 AM EDT Appointment [facility] [address] [place] [address] 10/26/2024 11:00 AM EDT Office Visit [facility] [address] [address] Alisha Murillo MD [address] [facility], [facility] [address] [place], [place] [phone] Scheduled Orders Name Type Priority Associated Diagnoses Orde r Schedule OUTSIDE LAB SCAN Lab Ordered: 09/16/2022 documented as of this encounter Visit Diagnoses Not on filedocumented in this encounter Care Teams Calendering Machine Operator Relationship Specialty Start Date End Date Skyler [place] DO [address] [place] [address] PCP - General 08/29/18 Alisha Murillo MD [address] [facility], [facility] [address] [place] [address] Boiler/Chiller Technician Electrophysiology 04/21/23 documented as of this encounter
--- OUTSIDE RECORDS SUMMARY | 2024-10-12 12:15 | XMS_ITS | Encounter Summary ---
Author Organization [employer] Address [id number] [address] [place] [address] Care Team Providers Care Security And Compliance Project Manager Name Role Phone Skyler Cameron DO Primary Care Provider [phone] Encounter Details Date Type Department Care Team (Late st Contact Info) Description 03/28/2020 Orders Only [facility] [address] [place] [address] David Wong RMA Prolapsed uterus; Cervical polyp [...] Pelvis Ultrasound 02/01/2020 us Santiago Arnold MD IM US ORDERABLES Final Result documented in this encounter Visit Diagnoses Diagnosis Prolapsed uterus Uterine prolapse without mention of vaginal wall prolapse Cervical polyp Mucous polyp of cervix documented in this encounter Additional Health Concerns Assessment Noted Time A Body Mass Index follow-up plan has been documented for the patient 04/18/2019 12:12 PM EST documented as of this encounter Care Teams Security And Compliance Project Manager Relationship Specialty Start Date End Date Skyler [place] DO [address] [place] [address] [place] [address] PCP - General Family Medicine 10/04/18 documented as of this encounter
--- OUTSIDE RECORDS SUMMARY | 2024-10-12 12:15 | XMS_ITS | Encounter Summary ---
Author Organization [facility] Address [address] [place] [address] Phone Care Team Providers Care Infrastructure Security Architect Name Role Phone Skyler [place] DO Primary Care Provider Alisha Murillo MD Unavailable Encounter Details Date Type Department Care Team (Late st Contact Info) Description 09/21/2023 Scanned Document [facility] [address] [place] [phone] Scanning, Generic Provider Social History Tobacco Use [...] Description 10/16/2024 9:10 AM EDT Office Visit [facility] [address] [facility] [address] [place] [address] José Mon DO [address] [facility] 2, [address] [place] [address] 10/26/2024 10:20 AM EDT Appointment [facility] [address] [place] [address] 10/26/2024 11:00 AM EDT Office Visit [facility] [address] [place] [address] Alisha Murillo MD [address] [facility], [facility] [address] [place], [place] [address] documented as of this encounter Visit Diagnoses Not on filedocumented in this encounter Care Teams Infrastructure Security Architect Relationship Specialty Start Date End Date Skyler [place] DO [address] [place], [place] [phone] PCP - General 08/29/18 Alisha Murillo MD [address] [facility], [facility] [address] [place], [place] [phone] Air Export Coordinator Electrophysiology 04/21/23 documented as of this encounter
[2024-10-12 12:28] LABS: Basophils Absolute Auto 0.1 10^3/uL (0.0-0.1); Basophils Percent Auto 1.7 % (0.2-2.0); Eosinophils Absolute Auto 0.2 10^3/uL (0.0-0.7); Eosinophils Percent Auto 2.1 % (0.9-7.0); Hematocrit 37.2 % (36.0-48.0); Hemoglobin 12.8 g/dL (12.0-16.0); Immature Granulocytes Abs Auto 0.01 10^3/uL (0.00-0.03); Immature Granulocytes Pct Auto 0.1 % (0.0-0.5); Lymphocytes Absolute Auto 2.2 10^3/uL (1.2-3.8); Lymphocytes Percent Auto 31.3 % (20.5-60.0); Mean Corpuscular HGB Conc 34.4 g/dL (29.9-35.2); Mean Corpuscular Hemoglobin 31.4 pg (26.7-34.0); Mean Corpuscular Volume 91.2 fL (81.0-99.0); Mean Platelet Volume 9.8 fL (9.5-13.5); Monocytes Absolute Auto 0.8 10^3/uL (0.3-0.8); Monocytes Percent Auto 10.6 % (1.7-12.0); Neutrophils Absolute Auto 3.8 10^3/uL (1.4-6.5); Neutrophils Percent Auto 54.2 % (43.0-75.0); Platelet Count 281 10^3/uL (150-450); Red Blood Count 4.08 10^6/uL (4.20-5.40); Red Cell Distribution Width 13.1 % (11.0-15.0); White Blood Count 7.1 10^3/uL (4.0-11.0)
--- NOTE | 2024-10-12 13:55 | RT_ITS ---
[facility] Test Date: 2024-10-12 Pat Name: GRUPO TONG Department: Room: - Gender: Female Ferry Engineer: Rebecca Wong RRT : 1950 Requested By: Balwinder Nesbitt Order Number: [id number] Reading MD: Balwinder Nesbitt Interpretive Statements Pulmonary function testing was completed according to ATS criteria. Findings were considered accurate and reproducible, with exception of DLCO which did not meet ATS standards. No bronchodilator was administered due to normal spirometric values. Spirometry: -FEV1/FVC: Normal @ 79% -FEV1: Normal @ 86% -FVC: Normal @ 82% Lung volumes by plethysmography: -RV: Reduced @ 32% -TLC: Low normal @ 82% Diffusion capacity: -DLCO: Mild reduction @ 76% when corrected for Hb 12.8g/dL Impressions: -Technically normal spirometry with low normal TLC and mild diffusion impairment. This pattern can be seen in, but not restricted to, cardiopulmonary vascular disorders, early interstitial lung disease, and early emphysema. Clinical correlation required. Electronically Signed On 10-16-2024 14:12:30 EDT by Balwinder Nesbitt
[2024-10-17 11:12] LABS: Immunoglobulin E, Total 83 IU/mL (6-495)
== END 2024-10-12 12:08 | disposition home or self-care (01) ==
LOC: CARD 12:12
PROVIDERS: PCP Family Medicine; Visit Provider Internal Medicine
DX: R05.3 Chronic cough (principal)
CPT/HCPCS: 36415; 82785; 85025; 94010; 94726; 94729